=== PATIENT | female | born 1970 | race Caucasian/White ===

== ENCOUNTER 2021-04-05 13:59 | Emergency (ER) | payer BC, OTHER ==
[2021-04-05] MEDS ORDERED: cloNIDine 0.1 MG Tab PO ONE (14:19)
--- NOTE | 2021-04-05 14:20 | EDM.PDOC ---
ED HPI GENERAL MEDICAL PROBLEM - General Chief Complaint: Cardiovascular Problem Stated Complaint: HIGH BLOOD PRESSURE [id number] Time Seen by Provider: 04/05/21 14:20 Source of Information: Reports: Patient, RN, RN Notes Reviewed History Limitations: Reports: No Limitations - History of Present Illness INITIAL COMMENTS - FREE TEXT/NARRATIVE: Norma is a 51 y/o female who presents to the ED via personal vehicle with complaints of high blood pressure. The patient reports noting a headache and lightheadedness this morning, which prompted her to have her blood pressure checked at the local pharmacy. Her SBP readings there ranged from 190-220. She denies a history of hypertension and takes no medications daily. She denies recent illness, fever, shaking chills, chest pain/pressure, palpitations, dyspepsia, nausea, vomiting, or diarrhea. She has taken no medications for her symptoms. She denies tobacco, alcohol, or recreational drug use. - Related Data Allergies Allergy/AdvReac Type Severity Reaction Status Date / Time morphine Allergy Nausea and Verified 04/05/21 14:25 Vomiting Home Meds: Home Meds . [No Known Home Meds] 10/07/15 [History] Past Medical History Respiratory History: Reports: Asthma ED ROS GENERAL - Review of Systems Review Of Systems: Comprehensive ROS is negative, except as noted in HPI. ED EXAM, GENERAL - Physical Exam Exam: See Below Exam Limited By: No Limitations General Appearance: Alert, No Apparent Distress Eye Exam: Bilateral Eye: EOMI, Normal Inspection, PERRL (3mm) Ears: Normal External Exam, Normal Canal, Hearing Grossly Normal, Normal TMs Ear Exam: Bilateral Ear: Auricle Normal, Canal Normal, TM normal Nose: Normal Inspection, Normal Mucosa, No Blood Throat/Mouth: Normal Inspection, Normal Oropharynx, Normal Voice, No Airway Compromise Head: Atraumatic, Normocephalic Neck: Normal Inspection, Full Range of Motion Respiratory/Chest: No Respiratory Distress, Lungs Clear, Normal Breath Sounds, No Accessory Muscle Use, Chest Non-Tender Cardiovascular: Normal Peripheral Pulses, Regular Rate, Rhythm, No Gallop, No Murmur, No Rub Peripheral Pulses: 2+: Radial (L), Radial (R) GI/Abdominal: Normal Bowel Sounds, Soft, Non-Tender (Female) Exam: Deferred Rectal (Female) Exam: Deferred Back Exam: Normal Inspection, Full Range of Motion Extremities: Normal Inspection, Normal Range of Motion, Normal Capillary Refill Neurological: Alert, Oriented, CN II-XII Intact, Normal Cognition, Normal Gait, No Motor/Sensory Deficits Psychiatric: Normal Affect, Normal Mood Skin Exam: Warm, Dry, Intact, Normal Color, No Rash. No: Cyanosis, Jaundice, Mottled, Pallor #1 Interpretation EKG Date: 04/05/21 Time: 14:24 Rhythm: NSR Rate (Beats/Min): 81 [place]: Normal P-Wave: Present QRS: Normal ST-T: Normal QT: Normal AR/PQ Interval: 0.137 Comparison: No Change EKG Interpretation Comments: NSR; No evidence of acute myocardial ischemia Course - Vital Signs Last Recorded V/S: Last Vital Signs Temp 98.1 F 04/05/21 14:26 Pulse 81 04/05/21 14:46 Resp 13 04/05/21 14:26 BP 156/80 H 04/05/21 14:46 Pulse Ox 97 04/05/21 14:26 - Orders/Labs/Meds Labs: Laboratory Tests 04/05/21 04/05/21 Range/Units 14:33 14:33 WBC 5.7 (5.0-10.0) 10^3/uL RBC 4.72 (4.2-5.4) 10^6/uL Hgb 14.0 (12.0-16.0) g/dL Hct 41.8 (37.0-47.0) % MCV 88.6 (80-100) fL MCH 29.7 (27.0-34.0) pg MCHC 33.5 (33.0-35.0) g/dL Plt Count 181 (150-450) 10^3/uL Neut % (Auto) 59.9 (42.2-75.2) % Lymph % (Auto) 28.2 (20.5-50.1) % [place] % (Auto) 9.2 H (2-8) % Eos % (Auto) 2.3 (1.0-3.0) % Baso % (Auto) 0.4 (0.0-1.0) % Sodium 141 (136-145) mmol/L Potassium 3.8 (3.5-5.1) mmol/L Chloride 103 (98-107) mmol/L Carbon Dioxide 28 (21-32) mmol/L Anion Gap 13.8 H (7-13) mEq/L BUN 14 (7-18) mg/dL Creatinine 0.85 (0.55-1.02) mg/dL Est Cr Clr Drug Dosing 74.12 mL/min Estimated GFR (MDRD) > 60 BUN/Creatinine Ratio 16.5 (No establ ref range) Glucose 87 (70-99) mg/dL Calcium 9.2 (8.5-10.1) mg/dL Total Bilirubin 0.6 (0.2-1.0) mg/dL AST 21 (15-37) U/L ALT 35 (14-59) U/L Alkaline Phosphatase 76 (46-116) U/L Troponin I High Sens 6 (<=51) pg/mL B-Natriuretic Peptide 7 (0-100) pg/ml Total Protein 7.2 (6.4-8.2) g/dL Albumin 3.7 (3.4-5.0) g/dL Globulin 3.5 Albumin/Globulin Ratio 1.1 TSH, Ultra Sensitive 1.25 (0.36-3.74) uIU/mL Meds: Medications Discontinued Medications Generic Name Dose Route Start Last Admin Trade Name Freq PRN Reason Stop Dose Admin Clonidine HCl 0.2 mg 04/05/21 14:19 04/05/21 14:41 Clonidine 0.1 Mg Tab PO 04/05/21 14:20 0.2 mg ONETIME ONE Administration - Re-Assessments/Exams Free Text/Narrative Re-Assessment/Exam: 04/05/21 Clonidine 0.1mg administered while labs pending. Findings of examination and lab work reviewed with patient. Patient instructed to follow up with PCP in 1-2 days. Will treat hypertension with Lisinopril 5mg PO while patient waiting to get into PCP. Supportive cares discussed. Red flag signs and symptoms which would warrant immediate reevaluation reviewed. Patient verbalized understanding and agreement with the plan of care. Departure - Departure Time of Disposition: 15:21 Disposition: Home, Self-Care 01 Condition: Good Clinical Impression: Hypertension Qualifiers: Hypertension type: primary hypertension Qualified Code(s): I10 - Essential (primary) hypertension Instructions: Hypertension, Adult Referrals: Jennifer Hearn MD [Primary Care Provider] - Forms: ED Department Discharge Additional Instructions: Rx: Lisinopril 5mg (#7) 1.) Follow up with your primary care provider tomorrow regarding today's visit. 2.) Return to the emergency department with any persistent or worsening symptoms despite medications.
[2021-04-05 14:47] VITALS: BP 156/80; PULSE 81
[2021-04-05 15:05] LABS: ANION GAP 13.8 mEq/L (7-13); CHLORIDE,CL 103 mmol/L (98-107); SODIUM,NA 141 mmol/L (136-145)
== END 2021-04-05 15:48 | disposition home or self-care (01) ==
LOC: DL.ED 13:59
DX: I10 Essential (primary) hypertension (principal); Z88.5 Allergy status to narcotic agent
CPT/HCPCS: 36415; 80053; 83880; 84443; 84484; 85025; 93005; 99283; A9270

== ENCOUNTER → 2022-03-18 | Day surgery (SDC) | payer OTHER ==
[~2022-03-18] MED LIST: Midazolam 1 MG/ML 2 ML SDV IV ONE; Midazolam 1 MG/ML 2 ML SDV ONE; Sodium Chloride 0.9% 10 ML Syringe FLUSH PRN; Sodium Chloride 0.9% 10 ML Syringe FLUSH SCH; fentaNYL 100 MCG/2 ML SDV IV ONE; fentaNYL 100 MCG/2 ML SDV ONE
[2022-03-18] MEDS: Dextrose 5%-0.45% NaCl 1,000 ML IV SCH (06:58)
[2022-03-18] MEDS: fentaNYL 100 MCG/2 ML SDV IV ONE ×3 (07:39→07:53)
[2022-03-18] MEDS: Midazolam 1 MG/ML 2 ML SDV IV ONE ×8 (07:41→07:51)
== END | disposition home or self-care (01) ==
LOC: DL.ENDO 06:21 → MERGE 06:30
PROVIDERS: ATTEND Internal Medicine Gastroenterology
DX: K52.9 Noninfective gastroenteritis and colitis, unspecified (principal); E66.09 Other obesity due to excess calories; I10 Essential (primary) hypertension; J45.909 Unspecified asthma, uncomplicated; Z88.5 Allergy status to narcotic agent; Z88.7 Allergy status to serum and vaccine
CPT/HCPCS: J2250; J3010; J7042

== ENCOUNTER 2022-07-03 02:06 | Emergency (ER) | payer OTHER ==
[2022-07-03 02:55] LABS: ANION GAP 10.7 mEq/L (7-13)
== END 2022-07-03 03:14 | disposition home or self-care (01) ==
LOC: DL.ED 02:06
DX: L02.224 Furuncle of groin (principal); R59.9 Enlarged lymph nodes, unspecified; M79.641 Pain in right hand; I10 Essential (primary) hypertension; J45.909 Unspecified asthma, uncomplicated; Z88.5 Allergy status to narcotic agent; Z88.8 Allergy status to other drugs, medicaments and biological substances; Z91.048 Other nonmedicinal substance allergy status; Z79.899 Other long term (current) drug therapy
CPT/HCPCS: 36415; 80053; 81001; 83605; 85025; 85379; 99283